=== PATIENT | female | born 1950 | race Caucasian/White ===

== ENCOUNTER 2017-09-21 11:26 | Emergency (ER) | payer BC, MEDICARE ==
[~2017-09-21] VITALS: Ht 165.1 cm; Wt 62.0 kg
[~2017-09-21 11:26] MED LIST: CARV3.125 PO; CELE200C PO; CYMB60CA PO; ESTR1TAB PO; FURO20 PO; GLUCTAB PO; KCL20 PO; LISI2.5T55 PO; LORT5TAB PO; LOVA10TA PO; NEXI40CA PO
[2017-09-21 11:28] VITALS: BP 122/60; PULSE 88; RESP 16; TEMP 98.1; O2SAT 96
[2017-09-21] MEDS ORDERED: ASPI81CH6 CHEW (11:47)
[2017-09-21] MEDS ORDERED: CARV6.252 PO (11:47)
[2017-09-21] MEDS ORDERED: VITACAP7 PO (11:47)
[2017-09-21] MEDS ORDERED: FISHCAP4 PO (11:47)
[2017-09-21] MEDS ORDERED: TRAM50TA PO (11:47)
[2017-09-21] MEDS ORDERED: ESOM1CAP16 PO (11:47)
[2017-09-21] MEDS ORDERED: DULO1CAP3 PO (11:47)
[2017-09-21] MEDS ORDERED: VICT18IN SQ (11:47)
[2017-09-21] MEDS ORDERED: CELE200C PO (11:47)
[2017-09-21] MEDS ORDERED: MAGN100T2 PO (11:47)
[2017-09-21] MEDS ORDERED: ZOLP5TAB3 PO (11:47)
[2017-09-21] MEDS ORDERED: ATOR40TA16 PO (11:47)
[2017-09-21] MEDS ORDERED: METH1CAP PO (11:47)
[2017-09-21] MEDS ORDERED: BACT800T5 PO (12:08)
[2017-09-21] MEDS ORDERED: CEPH-460 PO (12:08)
--- NOTE | 2017-09-21 12:09 | PD ---
HPI Chief Complaint: Skin Problem Time Seen by Provider: 11:44 Travel History International Travel<30 days: No Contact w/Intl Traveler<30days: No Traveled to known affect area: No History of Present Illness HPI 67-year-old female here with wound to her abdomen 1 day. She reports she noticed a small area of redness to her lower abdomen this morning and upon further inspection realized it looks like she had a wound on her scar. She denies injury or trauma. No fever chills. No abdominal pain. No nausea, vomiting, diarrhea. Denies any pain. Symptom severity mild to moderate. No aggravating or alleviating factors. No associated signs or symptoms. PFSH Past Medical History Arthritis: Yes Cardiovascular Problems: No Congestive Heart Failure: Yes (NEW ONSET THIS VISIT) Diabetes: Yes Patient Takes Glucophage: No Diminished Hearing: No Gastrointestinal Disorders: Yes GERD: Yes Genitourinary: No Musculoskeletal: Yes Neurologic: No Reproductive: No Respiratory: No Immunizations Current: Yes Ulcer: Yes Tetanus Vaccination: Unknown Influenza Vaccination: Yes ?: Not Past Surgical History Abdominal Surgery: No Cardiac Surgery: No Section: Yes (1 ) Ear Surgery: No Endocrine Surgery: No Eye Surgery: No Genitourinary Surgery: No Gynecologic Surgery: Yes (, TOTAL HYSTERECTOMY) Hysterectomy: Yes Oral Surgery: Yes (TONSILECTOMY) Thoracic Surgery: No Tonsillectomy: Yes Social History Alcohol Use: Yes (SOC) Tobacco Use: Yes (1/2) Substance Use: No Allergies-Medications (Allergen,Severity, Reaction): Coded Allergies: No Known Allergies (Unverified Adverse Reaction, Unknown, 09/21/17) Reported Meds & Prescriptions Reported Meds & Active Scripts Active Reported Methyltestosterone 10 Mg Cap 10 Mg PO DAILY Tramadol (Tramadol HCl) 50 Mg Tab 50 Mg PO Q8H PRN Zolpidem (Zolpidem Tartrate) 5 Mg Tab 5 Mg PO HS PRN Fish Oil + D3 (Fish Oil-Cholecalciferol) 1,200-1,000 Mg-Unit Cap 1 Cap PO DAILY B Complex (B-Complex Vitamins) 1 Cap 1 Cap PO DAILY Magnesium Citrate 100 Mg Tab 400 Mg PO DAILY PRN Victoza Inj (Liraglutide Inj) 18 Mg/3 Ml Pen 0.6 Mg SQ BID Atorvastatin (Atorvastatin Calcium) 40 Mg Tab 40 Mg PO HS Carvedilol 6.25 Mg Tab 6.25 Mg PO BID Celebrex (Celecoxib) 200 Mg Cap 200 Mg PO DAILY Esomeprazole DR 40 Mg Capdr 40 Mg PO DAILY Duloxetine DR (Duloxetine HCl) 60 Mg Capdr 60 Mg PO DAILY Aspirin Low Dose (Aspirin) 81 Mg Chew 81 Mg CHEW DAILY Review of Systems Except as stated in HPI: all other systems reviewed are Neg General / Constitutional: No: Fever Eyes: No: Visual changes HENT: No: Headaches Cardiovascular: No: Chest Pain or Discomfort Respiratory: No: Shortness of Breath Gastrointestinal: No: Abdominal Pain Genitourinary: No: Dysuria Physical Exam Narrative GENERAL: Alert and well-appearing 67-year-old female. SKIN: Warm and dry. HEAD: Normocephalic. EYES: No scleral icterus. No injection or drainage. NECK: Supple CARDIOVASCULAR: Regular rate and rhythm without murmurs, gallops, or rubs. RESPIRATORY: Breath sounds equal bilaterally. No accessory muscle use. GASTROINTESTINAL: Abdomen soft, non-tender, nondistended. 2 mm shallow open wound in the midline of her scar. Scant clear drainage. No fluctuance or induration. 2 cm surrounding erythema. MUSCULOSKELETAL: No cyanosis, or edema. BACK: Nontender without obvious deformity. No CVA tenderness. Data Data Last Documented VS Vital Signs Date Time Temp Pulse Resp B/P (MAP) Pulse Ox O2 Delivery O2 Flow Rate FiO2 09/21/17 11:28 98.1 88 16 122/60 (80) 96 MDM Medical Decision Making Medical Screen Exam Complete: Yes Emergency Medical Condition: Yes Differential Diagnosis Cellulitis, wound dehiscence, fistula Narrative Course 67-year-old female with small shallow ulcer to an old scar in her abdomen. Abdomen is soft and nontender. She does have small amount of surrounding erythema and will be treated for wound infection/cellulitis. She is nontoxic appearing. Vital signs are stable. She reports no change in her blood sugars. She can follow-up with her primary doctor this week. Diagnosis Primary Impression: Cellulitis Qualified Codes: L03.90 - Cellulitis, unspecified Additional Instructions: Antibiotics as directed. Cleanse area daily with soap and water and cover with a clean dry dressing. Follow-up with your doctor this week Scripts Cephalexin (Keflex) 500 Mg Cap 500 MG PO Q6H for Infection for 10 Days, #40 CAP 0 Refills Prov: Alyse Qiu 09/21/17 Sulfamethoxazole-Trimethoprim (Bactrim DS) 800-160 Mg Tab 1 TAB PO BID for Infection, #20 TAB 0 Refills Prov: Alyse Qiu 09/21/17 Disposition: 01 DISCHARGE HOME Condition: Stable Alyse Qiu Sep 21, 2017 12:09
== END 2017-09-21 12:14 | disposition home or self-care (01) ==
LOC: PHEFT 11:26
DX: L03.311 Cellulitis of abdominal wall (principal); I50.9 Heart failure, unspecified; E11.9 Type 2 diabetes mellitus without complications; K21.9 Gastro-esophageal reflux disease without esophagitis; F17.200 Nicotine dependence, unspecified, uncomplicated
CPT/HCPCS: 99283